=== PATIENT | male | born 2000 | race Two or more races ===

== ENCOUNTER 2019-01-16 21:51 | Emergency (ER) | payer OTHER ==
[~2019-01-16] VITALS: Ht 167.6 cm; Wt 52.2 kg
== END 2019-01-16 23:09 | disposition home or self-care (01) ==
LOC: ER 21:51
DX: K29.60 Other gastritis without bleeding (principal); R11.11 Vomiting without nausea; R50.9 Fever, unspecified

== ENCOUNTER → 2020-02-05 | Emergency (ER) | payer OTHER | END | disposition home or self-care (01) | LOC: ER 20:10 | DX: R05 Cough (principal); Z76.5 Malingerer [conscious simulation] ==